=== PATIENT | male | born 1950 | race Caucasian/White ===

== ENCOUNTER 2016-10-17 15:06 | Observation (INO) | payer BC ==
[~2016-10-17] VITALS: Ht 177.8 cm; Wt 97.8 kg
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
--- NOTE | ~2016-10-17 | CON ---
PATIENT'S NAME: DEVAN MIN [facility] AGE: 65 Y [address] ROOM: [place] [address] LOCATION: GPCU ADMIT DATE: 10/17/2016 Consultation DISCHARGE DATE: 10/18/2016 FAMILY PHYSICIAN: Osvaldo Lee MD ATTENDING PHYSICIAN: Corinne Suresh DATE OF CONSULTATION: 10/18/2016 REFERRING PHYSICIAN: Jn Garza MD REQUESTING PHYSICIAN: Corinne Suresh MD CHIEF COMPLAINT: Left scapular pain. HISTORY OF PRESENT ILLNESS: The patient is a 65-year-old male with known history of coronary artery disease, history of OR, and history of PCI in the past; also history of paroxysmal atrial fibrillation, on Xarelto. He was admitted through the emergency department with some pain between his scapulae, which he described as 7/10. He says at the time of his OR, that is in the vicinity of where he felt this pain and never had anterior chest pain at that time. He thought it might be his atrial fibrillation and went to his PCP who thought it was not related and gave him an inhaler thinking it may be due to his asthma. The pain had pretty much gone away and then come back and he went to the emergency department. EKG and enzymes have been negative. He had a CT of the chest without contrast for a history of known ascending aortic aneurysm, which in 2016 was 4.7 cm by my measurement. At this time, it measures the same as measured in the same way on the same cut. The radiology report states 5.0, but this is measured longitudinally instead of transversely as it should be. He underwent a stress test here which showed an old IMI but no ischemia and his back pain has completely resolved. He does state that if he moved his left shoulder, the pain was a little worse. Morphine helped to eliminate it as well. PAST MEDICAL HISTORY: Obstructive sleep apnea, uses CPAP; history of ascending aneurysm, inguinal hernia surgery, asthma, C-spine fusion. SOCIAL HISTORY: He is a nonsmoker. No alcohol abuse. FAMILY HISTORY: Positive for coronary disease but no aneurysms. PATIENT'S NAME: DEVAN MIN [facility] AGE: 65 Y [address] ROOM: [place] [address] [facility] ADMIT DATE: 10/17/2016 Consultation DISCHARGE DATE: 10/18/2016 FAMILY PHYSICIAN: Osvaldo Lee MD ATTENDING PHYSICIAN: Corinne Suresh REVIEW OF SYSTEMS: Otherwise negative at this time, 10-point review of systems. PHYSICAL EXAMINATION: VITAL SIGNS: Within normal limits at this time with heart rate in the 60s and regular. Respirations are 16. He is afebrile and in no apparent distress. CARDIOVASCULAR: Includes a normal neck exam with no bruits or JVD. Heart sounds are normal with no murmurs, rubs, or gallops. LUNGS: Clear bilaterally with no wheezing, rhonchi, or rales. ABDOMEN: There is no abdominal aortic aneurysm palpable on exam but his abdomen is a bit distended and he is somewhat obese. EXTREMITIES: He has bilateral femoral pulses. His legs are warm and well perfused with no rashes visible. IMPRESSION: Acute intrascapular and left scapular pain which has resolved with negative workup for myocardial ischemia and myocardial infarction. He has a known ascending thoracic aortic aneurysm without any real appreciable increase in size over the last couple of years. What we do not know so far is that he may have had an aortic dissection as the CT was not done with contrast. We will send him for that at this time. PLAN: CTA with contrast. DAR LEAL MD WR/modl /[id number] d: 10/18/16 185 t: 10/20/16 0816, CONSULTATION REPORT
--- NOTE | ~2016-10-17 | ESTC ---
Cardiac Perfusion Imaging Demographics Patient Name MECHELLE Alonso Gender Male Patient Number [id number] Race Visit Number [id number] [place] [id number] Room Number G6322 Accession Number [id number] Height 70 inches Date of 1950 Weight 215 pounds MD Rosa Colunga MD Interpreting CNC Date of study 10/18/2016 Physician Kerwin Sun MD Supervising MD/MLP Kerwin Sun NM Technologist Ariana Patel MD Ordering Physician Kerwin Sun Stress optomechanical technician Stress ECG Reading Kerwin Clemons Physician MD Tona Alonso RN The procedure was explained in detail to the patient. Risks, complications and alternative treatments were reviewed. Written consent was obtained. Medications Reviewed with Patient prior to Procedure. Procedure Procedure Type: Nuclear Stress Test:Exercise, Cardiolite Stress Test Procedure Start time: 10/18/2016 08:30 Indications: Chest pain. Risk Factors The patient risk factors include:prior PCI on 03/05/2012;peripheral arterial disease, obesity, hypercholesterolemia, hypertension, family history of premature CAD appeared at age 52, chronic lung disease, dyslipidemia and prior NV . Conclusions Summary Inferolateral medium to large moderate to severe fixed defect most consistent with prior NV. LVEF :57%. Basal inferior moderate hypokinesia. DTS: 5 (Low risk). Stress Protocols Resting ECG RSR Pre-stress physical exam: Un changed. Predicted HR: 153 bpm ECG Findings [address] depression involving Lead AVF at peak exercise which resolved quickly. Arrhythmias No rhythm abnormality. Symptoms Focal area of soreness left interscapular area at rest whichworsened a little with exercise.Reason for termination was fatigue and SOB. Stress Interpretation Left intercostal focal soreness and tenderness which worsened a little with exertion. Duration:10:26. METs:12.4 Achieved: 92% MPHR. DP: 22 K. No chest pain.Left interscapular non-limiting pain as above. EKG:Positive for ischemia. No arrythmias. DTS: 5 (Low risk) Imaging Results High risk findings Summed scores - Summed stress score: 17 - Summed rest score: 15 - Summed difference score: 2 Stress ejection Ejection fraction:57 % EDV :129 ml ESV :56 ml Stroke volume :73 ml LV mass :152 gr LV size:Normal Normal LV function Imaging Protocols Rest Stress Isotope:Tc99m Sestamibi IV Isotope: Tc99m Sestamibi IV Isotope dose:14.7 mCi Isotope dose:42.8 mCi Date:10/18/2016 07:00 Date:10/18/2016 09:23 Technique: SPECT Technique: Gated Supine SPECT Supine IV remains in place after procedure. Scan Time:45-60 minutes post Scan Time:15-30 minutes post injection injection Medical History Admission Data Admission date: 10/17/2016 Admission Time: 16:38 Hospital Status: Inpatient. Signatures dtt: Corinne Suresh dtd: 10/18/16 0811 Physician Self Edit
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
--- NOTE | ~2016-10-17 | ECHO ---
Transthoracic Echocardiography Report (TTE) Demographics Patient Name DEVAN MIN Date of Study 10/18/2016 Patient Number [id number] Visit Number [id number] Date of 1950 Room Number G6322 Gender Male Number Age 65 year(s) Referring Kerwin Sun Oxygraph Operator Jeremiah Colin RDCS, Physician RVT, RDMS, ENGINEER CHIEF Rosa Colunga MD Physician Interpreting Kerwin Sun MD Distribution Supervisor Physician Supervising Ordering MD/MLP Physician Nurse Stress Plaster Applicator Conclusions Summary The estimated left ventricular ejection fraction is 55-60 with mild posterior and moderate basal inferior hypokinesia.The left ventricle is normal in size . Mild septal left ventricular hypertrophy. Normal right ventricular systolic function with mild dilatation. The left atrium is moderately dilated by LA volume index measurement. The right atrium is mildly dilated.Increased RA pressures. The ascending aorta appears dilated. The maximum diameter measures 4.6 cm. Procedure Type of Study TTE procedure:2D Echocardiogram, M-Mode, Doppler , Color Doppler, Contrast study, Echo with Contrast, Complete Echo with Contrast NH. Procedure Date Date: 10/18/2016 Start: 04:58 PM Study Location: Inpatient Portable Technical Quality: Adequate visualization Indications:Fever of unknown origin. Additional Indications:Chest Pain Appropriate Use Criteria: 9 Patient Status: Routine Rhythm: Paced HR: 59 bpm BP: 159/93 mmHg Allergies - Other:(nitro drip (nausea)). M-Mode/2D Measurements LV Diastolic Dimension: 5.23 cm LV Systolic Dimension: 4.06 cm LV Septum Diastolic: 1.19 cm LV PW Diastolic: 0.91 cm AO Root Dimension: 3.3 cm LA Dimension: 4.12 cm RV Diastolic Dimension: 2.97 cm LA volume: 97 ml LVOT: 1.9 cm RV Base: 5.3 cm RV Mid: 3.9 cm RV Length: 6.6 cm TAPSE: 3.8 cm TDI-S': 15 cm/s Doppler Measurements AV Peak Velocity: 1.4 m/s MV Peak E-Wave: 0.74 m/s AV Peak Gradient: 7.84 mmHg MV Peak A-Wave: 0.91 m/s LVOT Peak Velocity: 0.86 m/s MV E/A Ratio: 0.81 TR Velocity:1.82 m/s TR Gradient:13.25 mmHg MV Deceleration Time: 232 msec Estimated RAP:12 mmHg PV Peak Velocity: 0.73 m/s Estimated RVSP: 25 mmHg PV Peak Gradient: 2.13 mmHg E' Septal Velocity: 0.07 m/s Estimated PASP: 25.25 mmHg E' Lateral Velocity: 0.07 m/s Findings Left Ventricle The left ventricle is normal in size with normal EF.Mild posterior and moderate basal inferior hypokinesia.Mild septal left ventricular hypertrophy. Right Ventricle Normal right ventricular systolic function with mild dilatation. Left Atrium The left atrium is moderately dilated by LA volume index measurement. Right Atrium The right atrium is mildly dilated. Increased RA pressures. Mitral Valve Mild calcification of the mitral valve. Aortic Valve The aortic valve is mildly sclerotic. There is trivial aortic regurgitation by color Doppler. Tricuspid Valve Normal tricuspid valve structure and function. Trivial tricuspid regurgitation by color Doppler. Pulmonic Valve Normal pulmonic valve structure and function. Pericardial Effusion No evidence of pericardial effusion. Miscellaneous The ascending aorta appears moderately dilated. The maximum diameter measures 4.6 cm. Pleural Effusion No evidence of pleural effusion. Contractility Score LV regional wall motion:(0-Non visualized 1-Normal 2-Hypokinesis 3-Akinesis 4-Dyskinesis 5-Aneurysm) Signature dtt: Corinne Suresh dtd: 10/18/16 1658 Physician Self Edit
--- NOTE | ~2016-10-17 | ER ---
PATIENT'S NAME: [facility] AGE: 65 Y [address] ROOM: [place] [address] LOCATION: GPCU ADMIT DATE: 10/17/2016 ER/Outpatient Report DISCHARGE DATE: FAMILY PHYSICIAN: QUINN LEE MD ATTENDING PHYSICIAN: Corinne Suresh Time of Arrival: 1506 hours. Time of Evaluation: 1506 hours. CHIEF COMPLAINT: Left shoulder pain. HISTORY OF PRESENT ILLNESS: The patient is a 65-year-old male, who presents to the emergency department today with a chief complaint of left shoulder pain. He reports it started this afternoon. The patient was initially seen by Dr. Suresh's office for what he thought was atrial fibrillation. He had some shortness of breath as well. He then developed this left shoulder pain. It is a pressure. It is a pulsating type pain. It is dull. It is currently 8/10 in severity. Does feel like his previous [place], although he was more diaphoretic with his previous [place]. Does report some nausea. No vomiting. No shortness of breath now. PAST MEDICAL HISTORY: Coronary artery disease; myocardial infarction; asthma; atrial flutter; hypertension; gastroesophageal reflux disease; dyslipidemia; peptic ulcer disease; COPD, asthmatic type. PAST SURGICAL HISTORY: Shoulder surgery, EGD, colonoscopy, cardiac catheterization, PTCA with stenting, ablation for flutter. SOCIAL HISTORY: The patient denies any tobacco use. Reports occasional alcohol use. Denies any illicit drug use. ALLERGIES: NO KNOWN DRUG ALLERGIES. MEDICATIONS: Please see list. PRIMARY CARE DOCTOR: Dr. Moody Lee. DIRECTOR SPEECH AND HEARING: PATIENT'S NAME: [facility] AGE: 65 Y [address] ROOM: [place] [address] LOCATION: GPCU ADMIT DATE: 10/17/2016 ER/Outpatient Report DISCHARGE DATE: FAMILY PHYSICIAN: QUINN LEE MD ATTENDING PHYSICIAN: Corinne Suresh Dr.. REVIEW OF SYSTEMS: All systems are reviewed by myself and are negative with the exception of those discussed in the HPI and past medical history. PHYSICAL EXAMINATION: VITAL SIGNS: Weight 99.7 kg, blood pressure 169/95, pulse 72, respiratory rate 16, temperature 98.4 tympanically, oxygen saturation 97% on room air. GENERAL: The patient is a 65-year-old male, who appears stated age, in mild acute distress. HEENT: Normocephalic, atraumatic. Pupils are equal, round, and reactive to light. NECK: Supple. There is no nuchal rigidity. CARDIOVASCULAR: Regular rate and rhythm. No murmurs, rubs, or gallops. LUNGS: Clear to auscultation bilaterally. No wheezes, rales, or rhonchi. ABDOMEN: Soft, nontender, and nondistended. No rebound, rigidity, or guarding. MUSCULOSKELETAL: The patient moves all 4 extremities. SKIN: Warm and dry. There are no rashes or lesions noted. LABORATORY DATA AND X-RAYS: CBC is unremarkable. CMP is unremarkable. Coags are normal. LFTs normal. Magnesium is normal. EKG is obtained, is interpreted by myself at 1520 hours shows sinus rhythm with a rate of 69, normal axis, normal interval. No ST elevation or ST depression. There is positive PVCs. Chest x-ray shows no acute process. Cardiac enzymes are normal. ProBNP is normal. IMPRESSION: 1. Left shoulder pain, rule out anginal equivalent. 2. Initial visit. EMERGENCY DEPARTMENT COURSE: The patient was brought back to the examination room. Seen and evaluated by myself. IV is established. Laboratory analysis and imaging are obtained as described above. The patient was given 3 baby aspirin, 1 nitroglycerin with no change. He was given 2 mg of morphine IV as well as 1 g of Tylenol p.o. I have reviewed the patient's old records. TTE in 08/20/2014 shows EF of 50% to 55% with moderate concentric LVH. Left heart catheterization in 2013 shows ostial left anterior descending at 10%, mid LAD 70% with PCI bare-metal stent, distal had 30%. I did discuss the results with the patient's at bedside. I have discussed the case with Dr. Suresh. He does recommend admission to the hospital for further evaluation, treatment, and management. I did contact Dr. Lee as well. The patient will be admitted under the care of Dr. Suresh in conjunction with Dr. Lee in stable condition. PATIENT'S NAME: [facility] AGE: 65 Y [address] ROOM: [address] [address] [facility] ADMIT DATE: 10/17/2016 ER/Outpatient Report DISCHARGE DATE: FAMILY PHYSICIAN: QUINN LEE MD ATTENDING PHYSICIAN: Corinne Suresh DO JAIME ALBA/tanner /[id number] d: [id number] t: 10/18/16 0609, OUTPATIENT REPORT
[~2016-10-17 15:06] MED LIST: ASPIRIN EC81 MG PO; CLARITIN10 MG PO; COZAAR25 MG PO; CRESTOR20 MG PO; FLONASE 50 MCG/16 GM NOSE; NITROSTAT0.4 MG SL; PROVENTIL OR V6.7 GM INH; THERAGRAN-M1 TAB PO; TOPROL XL 5050 MG PO; XARELTO20 MG PO
[2016-10-17 15:23] LABS: BASOPHIL # 0.1 K/uL (0.0-0.2); BASOPHIL % 0.6 %; EOSINOPHIL # 0.1 K/uL (0.0-0.5); EOSINOPHIL % 1.2 %; HEMATOCRIT 42.2 % (37.0-53.0); HEMOGLOBIN 14.5 g/dL (11.0-16.0); IMMATURE GRANULOCYTE # 0.1 K/uL (0.0-0.3); IMMATURE GRANULOCYTE % 0.7 %; LYMPHOCYTE # 2.1 K/uL (0.8-4.0); LYMPHOCYTE % 24.6 %; MCH 30.3 pg (27.0-34.0); MCHC 34.4 gm/dL (32.0-36.5); MCV 88.1 fl (83.0-98.0); MONOCYTE # 0.8 K/uL (0.0-1.0); MONOCYTE % 9.5 %; MPV 9.8 fl (9.4-12.4); NEUTROPHIL # (ANC) 5.3 K/uL (1.4-9.0); NEUTROPHIL % 63.4 %; NRBC % 0 /100WBC (0-0.00); PLATELET COUNT 176 K/uL (150-450); RBC 4.79 M/uL (3.50-5.50); RDW-CV 12.7 % (11.9-14.6); WBC 8.4 K/uL (4.0-11.0)
[2016-10-17 15:32] LABS: INR - (THERAPEUTIC) 0.97 (0.92-1.07); PROTIME 10.2 SECONDS (9.8-11.4); PTT 30 SECONDS (25-32)
[2016-10-17 15:42] LABS: ALBUMIN 4.2 gm/dL (3.5-5.0); ALK PHOS 71 IU/L (33-138); ALT 36 IU/L (12-78); AST 21 IU/L (10-40); BLOOD UREA NITROGEN 14 mg/dL (6-24); CALCIUM 8.9 mg/dL (8.5-10.5); CHLORIDE 107 mMol/L (96-110); CO2 26 mMol/L (22-32); CPK 149 IU/L (35-332); MAGNESIUM 2.2 mg/dL (1.8-2.6); SODIUM 141 mMol/L (135-145); TOTAL BILIRUBIN 0.7 mg/dL (0.0-1.5); TOTAL PROTEIN 7.1 g/dL (6.0-8.4)
[2016-10-17 17:44] LABS: CPK 131 IU/L (35-332)
[2016-10-17] MEDS ORDERED: TYLENOL EXTRA500 MG PO (18:33)
[2016-10-18 06:28] LABS: ALBUMIN 3.9 gm/dL (3.5-5.0); TOTAL BILIRUBIN 0.8 mg/dL (0.0-1.5); TOTAL PROTEIN 6.7 g/dL (6.0-8.4)
[2016-10-18] MEDS ORDERED: PROTONIX40 MG PO (18:47)
[2016-10-18] MEDS ORDERED: ULTRAM50 MG PO (18:53)
[2016-10-18] MEDS ORDERED: HYZAAR 50-12.51 EACH PO (18:56)
[2016-10-18] MEDS ORDERED: FLOVENT 110 M110 MCG INH (18:56)
== END 2016-10-18 20:12 | disposition disaster alternative care site (69) ==
LOC: GMED 15:06 → GPCU 16:38
PROVIDERS: Emergency Medicine; ADMIT Internal Medicine Interventional Cardiology
DX: R07.89 Other chest pain (principal); I71.2 Thoracic aortic aneurysm, without rupture; I48.0 Paroxysmal atrial fibrillation; I25.10 Atherosclerotic heart disease of native coronary artery without angina pectoris; I10 Essential (primary) hypertension; E78.00 Pure hypercholesterolemia, unspecified; G47.33 Obstructive sleep apnea (adult) (pediatric); J45.909 Unspecified asthma, uncomplicated; G62.9 Polyneuropathy, unspecified; Z98.49 Cataract extraction status, unspecified eye; Z87.442 Personal history of urinary calculi; Z79.899 Other long term (current) drug therapy; Z87.19 Personal history of other diseases of the digestive system; Z99.81 Dependence on supplemental oxygen; Z98.890 Other specified postprocedural states
CPT/HCPCS: A9500; C8929; G0378; J2270; Q9957; Q9967